=== PATIENT | female | born 1980 | race Caucasian/White ===

== ENCOUNTER 2018-10-29 06:44 | Day surgery (SDC) ==
[2018-10-29] MEDS ORDERED: LIDOCAINE 1% 20 ML MDV ID STA (07:02)
[2018-10-29 07:23] LABS: URINE PREGNANCY TEST NEGATIVE (NEGATIVE)
[2018-10-29] MEDS ORDERED: VERSED ONE (08:15)
[2018-10-29] MEDS ORDERED: DIPRIVAN 20 ML VIAL IVP ONE (08:15)
[2018-10-29 13:29] VITALS: BP 121/58
--- NOTE | 2018-10-30 11:02 | OP ---
PROCEDURE: COLONOSCOPY TO THE CECUM. ENDOSCOPIST: Junior ASHBY M.D. INDICATION: HISTORY OF POLYPS, FAMILY HISTORY OF COLON CANCER INSTRUMENT: [id number]. MEDICATION: PER ANESTHESIA. PROCEDURE: The patient was positioned for colonoscopy. The digital rectal exam was negative. The colonoscope was inserted through the anus and advanced to the cecum. The cecum was identified using the ileocecal valve and the appendiceal orifice as landmarks. The scope was slowly withdrawn through an adequately prepped colon. Beatty Bowel Prep Score equals 9. No evidence of polyp or mass on this exam. Retroflex exam was normal. Withdraw time 9 minutes and 8 seconds. PLAN: 1. Repeat Colonoscopy in 5 years for surveillance. CC: Dr. Abigail CURIEL
== END 2018-10-29 09:15 | disposition home or self-care (01) ==
LOC: SURG 06:44
PROVIDERS: ATTEND Internal Medicine Gastroenterology
DX: Z86.010 Personal history of colon polyps (principal); Z80.0 Family history of malignant neoplasm of digestive organs
CPT/HCPCS: 81025